=== PATIENT | female | born 1995 | race Two or more races ===

== ENCOUNTER → 2017-01-12 | Outpatient (CLI) | payer BC ==
[~2017-01-12] MED LIST: ACET500C5 PO; CLIN-73 PO; IBUP-1542 PO; PRED50TA PO
--- NOTE | 2017-01-12 19:16 | RADRPT ---
PROCEDURE: CT brain without contrast CLINICAL INDICATION: Severe headaches TECHNIQUE: CT of the brain without contrast was performed on a multidetector CT scanner, with multi planar reformats. One or more of the following dose reduction techniques were used: Automated expos ure control, adjustment in mA and / or kV according to patient size, use of iterative reconstructive technique. CTDIvol = 44 mGy; DLP = 720 mGy-cm. COMPARISON: None available FINDINGS: No acute intracranial hemorrhage is identified. No extra-axial fluid collection is seen. There is no mass effect. No midline shift is identified. Ventricles and sulci are within normal limits for size and configuration. The density of the brain is within normal limits. Singh-white differentiation is preserved. Osseous structures are unremarkable. Mastoid air cells and imaged paranasal sinuses grossly clear. IMPRESSION: Unremarkable noncontrast CT of the brain. RPTAT: HESO .Shaka Gomez MD, MD Date Time Electronically viewed and signed by .Shaka Gomez MD, on 01/12/2017 19:15 .O/
== END | disposition home or self-care (01) ==
LOC: C/S 17:52
PROVIDERS: ATTEND Internal Medicine
DX: R51 Headache (principal)
CPT/HCPCS: 70450

== ENCOUNTER 2019-07-11 09:15 | Emergency (ER) | payer BC ==
[~2019-07-11] VITALS: Ht 170.2 cm; Wt 74.4 kg
[~2019-07-11 09:15] MED LIST changes: -CLIN-73 PO; +CLIN300C10 PO; +KEN25O TOP; +MED4DP PO
[2019-07-11 09:16] VITALS: BP 124/67; PULSE 81; RESP 17; Ht 170.2 cm; Wt 74.4 kg
== END 2019-07-11 10:42 | disposition home or self-care (01) ==
LOC: FTE 09:15
DX: L50.9 Urticaria, unspecified (principal)
CPT/HCPCS: 99283